=== PATIENT | male | born 2000 ===

== ENCOUNTER 2019-07-28 13:40 | Outpatient (CLI) | payer OTHER, SELFPAY ==
--- NOTE | 2019-07-28 | XR_ITS ---
WS: [id number] LEFT FIFTH FINGER 3 VIEW. TECHNIQUE: PA, oblique and lateral. HISTORY: LT FINGER PAIN; CROWBAR DROPPED ON LT 5TH FINGER COMPARISON: 04/24/2016 No fracture, dislocation or joint abnormality. Soft tissue edema around the proximal IP joint. No fracture. XR/XR finger LT min 2V [id number] IMPRESSION: Extensive soft tissue edema at the PIP joint No fracture.
== END 2019-07-28 13:41 | disposition home or self-care (01) ==
LOC: RADOUTREAD 07-29 13:46
PROVIDERS: Family Provider Nurse Practitioner; Visit Provider Nurse Practitioner Family
DX: Z76.89 Persons encountering health services in other specified circumstances (principal)